=== PATIENT | female | born 1955 | race Hispanic/Latino ===

== ENCOUNTER 2018-05-08 10:31 | Inpatient (IN) | payer BC ==
[~2018-05-08] VITALS: Ht 152.4 cm; Wt 78.9 kg
[2018-05-08] MEDS ORDERED: ONDANSETRON HCL INJ 2 MG/ML VIAL IV STA ×2 (10:56→13:55)
[2018-05-08] MEDS ORDERED: PANTOPRAZOLE 40 MG 10ML VIAL IV STA (10:56)
[2018-05-08] MEDS ORDERED: SODIUM CHLORIDE 0.9% 1000ML 1,000 ML IV STA (10:56)
[2018-05-08] MEDS ORDERED: MORPHINE SULFATE INJ 4 MG/ML INJ IV STA (10:56)
[2018-05-08] MEDS ORDERED: DONNATAL/LIDOCAINE/MAALOX 30 ML SUSP PO ONE ×2 (11:00→13:00)
[2018-05-08 11:05] LABS: BASOPHILS % 0.1 % (0.0-1.0); HEMATOCRIT 40.2 % (34.2-44.1); HEMOGLOBIN 13.4 g/dL (12.0-16.0); LYMPHOCYTES # (AUTO) 0.9 (1.0-3.2); LYMPHOCYTES % 8.5 % (18.0-39.1); MEAN CORPUSCULAR HEMOGLOBIN 26.2 pg (28-32); MEAN CORPUSCULAR HGB CONC 33.3 g/dL (31-35); MEAN CORPUSCULAR VOLUME 78.7 fL (81-99); MONOCYTES # (AUTO) 0.4 (0.2-0.8); MONOCYTES % 3.6 % (4.4-11.3); NEUTROPHILS # (AUTO) 8.8 (2.1-6.9); NEUTROPHILS % 87.3 % (38.7-80.0); PLATELET COUNT 262 x10e3/uL (140-360); RED BLOOD COUNT 5.11 x10e6/uL (3.6-5.1); RED CELL DISTRIBUTION WIDTH 12.9 % (11.7-14.4)
[2018-05-08 11:07] LABS: BILIRUBIN,URINE NEGATIVE (NEGATIVE); CLARITY,URINE CLEAR (CLEAR); COLOR,URINE YELLOW (YELLOW); KETONES,URINE 1+ (NEGATIVE); LEUKOCYTE ESTERASE ,URINE NEGATIVE (NEGATIVE); NITRITE,URINE NEGATIVE (NEGATIVE); PROTEIN,URINE DIPSTICK TRACE (NEGATIVE); URINE UROBILINOGEN 0.2 mg/dL (0.2 - 1)
[2018-05-08 11:18] LABS: EPITHELIAL CELLS,URINE RARE /LPF; HYALINE CASTS 0-1 (0-1); MUCUS,URINE RARE (RARE)
[2018-05-08 11:19] LABS: INR 1.1; PROTHROMBIN TIME 13.4 seconds (11.9-14.5)
[2018-05-08 11:20] LABS: PARTIAL THROMBOPLASTIN TIME 29.7 seconds (23.8-35.5)
[2018-05-08 11:28] LABS: ALANINE AMINOTRANSFERASE 24 IU/L (0-55); ALBUMIN 4.5 g/dL (3.5-5.0); ALBUMIN/GLOBULIN RATIO 1.1 (0.8-2.0); ALKALINE PHOSPHATASE 78 IU/L (40-150); AMYLASE 39 U/L (25-125); ANION GAP 18.8 mmol/L (8-16); BLOOD UREA NITROGEN 15 mg/dL (7-26); BUN/CREATININE RATIO 21 (6-25); CALCIUM 10.5 mg/dL (8.4-10.2); CARBON DIOXIDE 23 mmol/L (22-29); CHLORIDE 98 mmol/L (98-107); CHOL/HDL RATIO 2.5 (3.0-3.6); CHOLESTEROL 90 MD/DL (0-199); CREATINE KINASE 115 IU/L (29-168); EST GLOMERULAR FILTRATION RATE > 60 ML/MIN (60-); GLUCOSE 237 mg/dL (74-118); HDL CHOLESTEROL 36 MG/DL (40-60); LDL CHOLESTEROL 37 MG/DL (60-130); LIPASE 17 U/L (8-78); POTASSIUM 3.8 mmol/L (3.5-5.1); SODIUM 136 mmol/L (136-145); TRIGLYCERIDES 83 MG/DL (0-149)
--- NOTE | 2018-05-08 12:50 | Diagnostic Imaging Report ---
PROCEDURE: CT ABDOMEN AND PELVIS WITH CONTRAST TECHNIQUE: The abdomen and pelvis were scanned utilizing a multidetector helical scanner from the diaphragm to the lesser trochanter after the IV administration of 100 cc of Isovue 370. Coronal and sagittal multiplanar reformations were obtained. RADIATION DOSE: DLP 652 mGy-cm COMPARISON: None. INDICATIONS: EPIGASTRIC PAIN FINDINGS: LOWER THORAX: Patchy dependent atelectasis. HEPATOBILIARY: There is a 9 mm hypodense lesion in the right hepatic lobe on series 2, image 23, too small to characterize. No other focal hepatic lesions. No biliary ductal dilatation. SPLEEN: No splenomegaly. PANCREAS: No focal masses or ductal dilatation. Punctate pancreatic tail hypodensity may represent side branch IPMN. ADRENALS: No adrenal nodules. KIDNEYS/URETERS: No hydronephrosis, stones, or solid mass lesions. PELVIC ORGANS/BLADDER: Unremarkable. PERITONEUM / RETROPERITONEUM: No free air or fluid. LYMPH NODES: No lymphadenopathy. VESSELS: Unremarkable. GI TRACT: There is a high-grade small bowel obstruction with dilated small bowel loops measuring up to 4.4 cm with fecalization of small bowel loops. There is a collapsed colon with small amount of stool contents in the rectum. Multiple transition points are noted, for example in the left lower quadrant on series 2, image 59 and right lower quadrant on series 2, image 62. There has been prior partial ileal and jejunal resection with reanastomosis. Small hiatal hernia. Normal appendix. BONES AND SOFT TISSUES: Scattered degenerative changes. No suspicious lytic or blastic lesions. Lower abdominal midline ventral hernia containing small bowel loops. IMPRESSION: High-grade small bowel structure with at least two transition points, likely related to adhesions given surgical history. Collapsed colon with a small amount of stool contents in the rectum. No free air. Dictated by: BRIANNE KIRKPATRICK M.D. on 05/08/2018 at 12:54 Electronically approved by: BRIANNE KIRKPATRICK M.D. on 05/08/2018 at 12:54
--- NOTE | 2018-05-08 12:52 | Diagnostic Imaging Report ---
PROCEDURE: A single AP view of the chest. COMPARISON: None. INDICATIONS: NAUSEA, VOMITING, ABDOMEN PAIN FINDINGS: Lines/tubes: None. Lungs: There are bilateral perihilar and interstitial opacities. Patchy opacities are present the lung bases, left greater than right. Pleura: There is no pleural effusion or pneumothorax. Heart and mediastinum: Mildly enlarged cardiomediastinal silhouette. Bones: No acute bony abnormality. IMPRESSION: Patchy consolidation, most pronounced in the left lower lobe may reflect aspiration, pneumonia, or atelectasis in the appropriate clinical setting. Mild pulmonary interstitial edema. Dictated by: BRIANNE KIRKPATRICK M.D. on 05/08/2018 at 12:57 Electronically approved by: BRIANNE KIRKPATRICK M.D. on 05/08/2018 at 12:57
[2018-05-08] MEDS ORDERED: MORPHINE SULFATE INJ 4 MG/ML INJ IV PRN (13:15)
[2018-05-08] MEDS ORDERED: BENZOCAINE/TETRACAINE/BUTAMBEN AERO SPRAY 56 GM CAN TOP ONE (13:30)
[2018-05-08] MEDS ORDERED: HYDROMORPHONE 1MG/1ML INJ IV STA (13:55)
[2018-05-08] MEDS: PIPER-TAZ 3.375 GM 50 ML IV SCH ×2 (14:13→18:00)
[2018-05-08] MEDS ORDERED: LISINOPRIL-HCT1 EAC2 PO (14:19)
[2018-05-08] MEDS ORDERED: GLIMEPIRIDE2 MG PO (14:19)
[2018-05-08] MEDS ORDERED: LEXAPRO10 MG PO (14:19)
[2018-05-08] MEDS ORDERED: DOCUSATE SODIU100 MG PO (14:19)
[2018-05-08] MEDS ORDERED: TIZANIDINE HCL4 MG PO (14:19)
[2018-05-08] MEDS ORDERED: OMEPRAZOLE40 MG PO (14:19)
[2018-05-08] MEDS ORDERED: LEVOTHYROXINE88 MCG PO (14:19)
[2018-05-08] MEDS ORDERED: ATORVASTATIN CA20 MG PO (14:19)
[2018-05-08] MEDS: MORPHINE SULFATE 2 MG/ML SYR IV PRN ×2 (14:51→22:00)
[2018-05-08] MEDS: SODIUM CHLORIDE 0.9% 250ML IRRIG IR SCH ×3 (14:51→22:00)
[2018-05-08] MEDS ORDERED: IOPAMIDOL 370 MG/ML 200 ML INFUS..BTL INJ ONE (15:01)
[2018-05-08] MEDS ORDERED: SODIUM CHLORIDE 0.9% 50ML 50 ML ONE (15:01)
[2018-05-08] MEDS: SODIUM CHLORIDE 0.9% 1000ML 1,000 ML IV SCH (15:40)
[2018-05-08 15:42] VITALS: BP 144/64
--- NOTE | 2018-05-08 17:03 | Diagnostic Imaging Report ---
PROCEDURE: A single AP view of the chest. COMPARISON: [facility], CT, CT ABDOMEN/PELVIS W, 05/08/2018, 12:07. INDICATIONS: NG TUBE PLACEMENT FINDINGS: See impression. IMPRESSION: 1. interval placement of enteric tube, which has its distal tip projecting in the region of the stomach body. 2. Mildly dilated single loop of likely small bowel in the left lower abdomen. Please refer to CT abdomen performed same day for further detail Gene Mosher M.D. Dictated by: Gene Mosher M.D. on 05/08/2018 at 17:08 Electronically approved by: Gene Mosher M.D. on 05/08/2018 at 17:08
[2018-05-08 17:13] VITALS: BP 144/64
--- NOTE | 2018-05-08 17:16 | Consultation ---
DATE OF CONSULTATION: May 08, 2018 CHIEF COMPLAINT: Abdominal pain. HISTORY OF PRESENT ILLNESS: The patient 63-year-old female with 1-day history of pain in the epigastric area and periumbilical with nausea and vomiting. The patient is in severe discomfort with pain described as sharp and comes in waves. No fever, chills or diarrhea. The patient gave a history of recurrent intestinal obstruction since last year, this being the 3rd episode in 10 months. Usually, the patient states it is resolved with nasogastric tube decompression. PAST MEDICAL HISTORY: Significant for hypothyroidism, hypertension, hyperlipidemia, and diabetes. PAST SURGICAL HISTORY: and hernia repair with bowel resection times 2. ALLERGIES: PENICILLIN. SOCIAL HABITS: No history of smoking or alcohol abuse. REVIEW OF SYSTEMS: No chest pain or shortness of breath. PHYSICAL EXAMINATION: VITAL SIGNS: Stable. The patient is afebrile. GENERAL: She is awake and in moderate to severe discomfort. HEENT: Sclerae nonicteric. NECK: Supple. LUNGS: Clear. HEART: Regular rate and rhythm. ABDOMEN: Distended with voluntary guarding diffusely with possible rebound tenderness. EXTREMITIES: Without cyanosis or edema. Patient's white cell count is 10, hemoglobin 13, creatinine 0.7. Lipase 17. CT of the abdomen showed small bowel obstruction to transitional point in the pelvis in the left lower quadrant with dilated proximal small bowel. ASSESSMENT: Recurrent intestinal obstruction at 2 point, at risk for blind loop syndrome. PLAN: Nasogastric tube has been inserted and placed on suction. Patient's family seems to be against any surgical intervention at the present time. Will follow patient with repeat exam and x-ray. Thank you for the consultation. Job#: [id number]
--- NOTE | 2018-05-08 18:37 | Diagnostic Imaging Report ---
PROCEDURE:ABDOMEN COMP INCL UPR OR DECUB INDICATION:Small bowel obstruction COMPARISON:[facility], DX, CHEST SINGLE (PORTABLE), 05/08/2018, 16:37. FINDINGS: Enteric tube has distal tip projecting in the region of the stomach body. Moderately dilated loop of bowel in the mid/left lower abdomen, with maximal measurement of approximately 4.3 cm. Contrast is noted in the collecting system and bladder Visualized lung bases are grossly clear. No abnormal calcifications overlie the renal shadows. CONCLUSION: 1. Enteric tube has distal tip projecting in the region of the stomach body. 2. Moderately dilated loop of bowel in the mid/left lower abdomen. Please refer to CT abdomen and pelvis performed same date for further detail. Gene Mosher M.D. Dictated by: Gene Mosher M.D. on 05/08/2018 at 18:41 Electronically approved by: Gene Mosher M.D. on 05/08/2018 at 18:41
[2018-05-08 20:00] VITALS: BP 107/54
[2018-05-08 22:00] VITALS: BP 107/54
[2018-05-08] MEDS: ONDANSETRON HCL INJ 2 MG/ML VIAL IV PRN (22:00)
[2018-05-09] VITALS (8 sets, daily range): BP systolic 95–138; BP diastolic 56–83
[2018-05-09] MEDS: PIPER-TAZ 3.375 GM 50 ML IV SCH ×4 (00:33→17:20)
[2018-05-09] MEDS: SODIUM CHLORIDE 0.9% 250ML IRRIG IR SCH ×6 (00:33→21:15)
[2018-05-09] MEDS: ONDANSETRON HCL INJ 2 MG/ML VIAL IV PRN ×2 (01:58→20:21)
[2018-05-09] MEDS: MORPHINE SULFATE 2 MG/ML SYR IV PRN ×3 (01:58→20:30)
[2018-05-09] MEDS: SODIUM CHLORIDE 0.9% 1000ML 1,000 ML IV SCH ×2 (04:52→16:03)
[2018-05-09] MEDS ORDERED: ACETAMINOPHEN 1000 MG/100 ML IV PRN (05:00)
[2018-05-09 05:54] LABS: BASOPHILS % 0.2 % (0.0-1.0); EOSINOPHILS # (AUTO) 0.1 (0.0-0.4); EOSINOPHILS % 1.1 % (0.0-6.0); HEMOGLOBIN 11.1 g/dL (12.0-16.0); LYMPHOCYTES # (AUTO) 1.3 (1.0-3.2); LYMPHOCYTES % 28.4 % (18.0-39.1); MEAN CORPUSCULAR HEMOGLOBIN 26.1 pg (28-32); MEAN CORPUSCULAR HGB CONC 32.6 g/dL (31-35); MEAN CORPUSCULAR VOLUME 79.8 fL (81-99); MONOCYTES # (AUTO) 0.6 (0.2-0.8); MONOCYTES % 13.3 % (4.4-11.3); NEUTROPHILS # (AUTO) 2.7 (2.1-6.9); NEUTROPHILS % 56.6 % (38.7-80.0); PLATELET COUNT 203 x10e3/uL (140-360); RED BLOOD COUNT 4.26 x10e6/uL (3.6-5.1); RED CELL DISTRIBUTION WIDTH 13.1 % (11.7-14.4)
[2018-05-09 06:14] LABS: ALANINE AMINOTRANSFERASE 16 IU/L (0-55); ALBUMIN 3.5 g/dL (3.5-5.0); ALKALINE PHOSPHATASE 60 IU/L (40-150); ANION GAP 12.5 mmol/L (8-16); BLOOD UREA NITROGEN 14 mg/dL (7-26); BUN/CREATININE RATIO 22 (6-25); CALCIUM 8.7 mg/dL (8.4-10.2); CARBON DIOXIDE 24 mmol/L (22-29); CHLORIDE 104 mmol/L (98-107); CREATININE, SERUM 0.65 mg/dL (0.57-1.11); EST GLOMERULAR FILTRATION RATE > 60 ML/MIN (60-); GLUCOSE 148 mg/dL (74-118); POTASSIUM 3.5 mmol/L (3.5-5.1); SODIUM 137 mmol/L (136-145)
[2018-05-10 00:07] VITALS: BP 155/75
[2018-05-10] MEDS: PIPER-TAZ 3.375 GM 50 ML IV SCH ×4 (00:45→17:03)
[2018-05-10] MEDS: ONDANSETRON HCL INJ 2 MG/ML VIAL IV PRN ×2 (01:10→19:04)
[2018-05-10] MEDS: MORPHINE SULFATE 2 MG/ML SYR IV PRN ×3 (01:10→22:30)
[2018-05-10] MEDS: SODIUM CHLORIDE 0.9% 250ML IRRIG IR SCH ×6 (01:10→21:15)
[2018-05-10 05:09] VITALS: BP 156/71
[2018-05-10] MEDS: SODIUM CHLORIDE 0.9% 1000ML 1,000 ML IV SCH ×3 (05:29→19:09)
[2018-05-10 07:18] LABS: BASOPHILS % 0.3 % (0.0-1.0); HEMATOCRIT 33.7 % (34.2-44.1); LYMPHOCYTES # (AUTO) 1.5 (1.0-3.2); LYMPHOCYTES % 37.4 % (18.0-39.1); MEAN CORPUSCULAR HEMOGLOBIN 26.4 pg (28-32); MEAN CORPUSCULAR HGB CONC 32.6 g/dL (31-35); MONOCYTES # (AUTO) 0.4 (0.2-0.8); MONOCYTES % 9.5 % (4.4-11.3); NEUTROPHILS % 51.5 % (38.7-80.0); PLATELET COUNT 186 x10e3/uL (140-360); RED BLOOD COUNT 4.16 x10e6/uL (3.6-5.1)
[2018-05-10 07:20] VITALS: BP 105/51
[2018-05-10 07:37] LABS: ALANINE AMINOTRANSFERASE 14 IU/L (0-55); ALBUMIN 3.4 g/dL (3.5-5.0); ALKALINE PHOSPHATASE 55 IU/L (40-150); BLOOD UREA NITROGEN 6 mg/dL (7-26); BUN/CREATININE RATIO 10 (6-25); CALCIUM 8.3 mg/dL (8.4-10.2); CARBON DIOXIDE 26 mmol/L (22-29); CHLORIDE 105 mmol/L (98-107); EST GLOMERULAR FILTRATION RATE > 60 ML/MIN (60-); GLUCOSE 119 mg/dL (74-118); SODIUM 141 mmol/L (136-145)
[2018-05-10 07:46] VITALS: BP 105/51
[2018-05-10] MEDS ORDERED: LEVOFLOXACIN 500MG/D5W 100ML 100 ML IV ONE (09:40)
[2018-05-10] MEDS ORDERED: BUPIVACAINE 0.5%/EPI 30 ML SDV INJ ONE (09:44)
[2018-05-10] MEDS ORDERED: BUPIVACAINE 0.25%/EPI 30ML SDV INJ ONE (09:44)
[2018-05-10] MEDS ORDERED: NEOSTIGMINE 5 MG/5ML SYR ONE (10:02)
[2018-05-10] MEDS ORDERED: ONDANSETRON HCL INJ 2 MG/ML VIAL ONE (10:02)
[2018-05-10] MEDS ORDERED: KETOROLAC TROMETHAMINE 30 MG/ML VIAL ONE (10:02)
[2018-05-10] MEDS ORDERED: PROPOFOL IV EMULSION 10 MG/ML 20 ML VIAL ONE (10:02)
[2018-05-10] MEDS ORDERED: DEXAMETHASONE SOD PHOS INJ 4 MG/ML VIAL ONE (10:02)
[2018-05-10] MEDS ORDERED: GLYCOPYRROLATE INJ 1MG/ 5 ML SYR ONE (10:02)
[2018-05-10] MEDS ORDERED: ACETAMINOPHEN 1000 MG/100 ML IV ONE (10:02)
[2018-05-10] MEDS ORDERED: SUCCINYLCHOLINE 200 MG/10 ML SYR ONE (10:02)
[2018-05-10] MEDS ORDERED: ROCURONIUM BROMIDE 10 MG/ML 5ML VIAL ONE (10:02)
[2018-05-10] MEDS ORDERED: HYDROMORPHONE 1MG/1ML INJ ONE ×2 (14:33→14:46)
[2018-05-10 15:57] VITALS: BP 136/67
[2018-05-10] MEDS ORDERED: PANTOPRAZOLE 40 MG 10ML VIAL IV ONE (17:03)
--- NOTE | 2018-05-10 18:27 | Operative Report ---
DATE OF PROCEDURE: May 10, 2018 PREOPERATIVE DIAGNOSIS: Small-bowel obstruction. POSTOPERATIVE DIAGNOSIS: Small-bowel obstruction. OPERATIVE PROCEDURES 1. Diagnostic laparoscopy. 2. Open lysis of adhesions. 3. Repair of enterotomy. ANESTHESIA: General. INDICATIONS FOR SURGERY: This patient is a 63-year-old female with chronic recurrent abdominal pain requiring hospitalizations 3 times in the last year. The patient has had multiple abdominal surgery. CT scan showed evidence of high-grade obstruction at 2 points in the small intestine. Due to persistent pain and evidence of bowel obstruction, the patient had consented for diagnostic laparoscopy and possible open bowel resection. PROCEDURE FINDINGS: High-grade small-bowel obstruction from adhesions of small bowel to the previously placed mesh. DESCRIPTION OF PROCEDURE: The patient was brought to the OR intubated. Abdomen prepped with alcohol and draped in a sterile fashion. A left upper quadrant subcostal port access was carried out, and insufflation then began. Under direct vision, other working ports are placed in the epigastric and right upper quadrant. Adhesions noted from prior surgery. This was then taken down the with sharp scissor dissection to minimize risk of bowel injury. The bowel was adherent to the abdominal wall mesh in the midabdomen, as well as the pelvis in the left lower quadrant. Lysis of adhesions was carried out gingerly with the scissors. At points, we had to separate the mesh from the abdominal wall instead of working directly on the bowel to minimize risks of iatrogenic injury. After an hour of lysis of adhesions, the adhesion in the pelvis was so dense that we made a midline incision from the umbilicus down towards the pelvis going through the midline fascia. Then under direct open access, we are able to lyse the adhesions from the pelvis completely freeing the bowel. A small iatrogenic to injury to the ileum occurred, which was repaired immediately with 3-0 Vicryl in 2 layers. Adhesions were then lysed completely from the ileocecal bowel in a retrograde fashion to a point above the mesh adhesions to ensure no distal obstruction to the enterotomy repair. No other points of obstruction noted. As we lysed all the adhesions encountered in the small intestine with Metzenbaum scissors. Operative field was then irrigated with copious saline solution. Hemostasis achieved. The omentum was then mobilized down to cover the bowel and the pelvic area to prevent recurrence of adhesions. The abdominal wall was then closed with a running 0 PDS reinforced with interrupted 0 Vicryl. Skin closed with ny. The patient was then extubated and transported to recovery room in guarded condition. Estimated blood loss 50 mL. Job#: [id number] GIANFRANCO
[2018-05-10 20:00] VITALS: BP 126/61
[2018-05-11] VITALS (8 sets, daily range): BP systolic 100–122; BP diastolic 53–62
[2018-05-11] MEDS: PIPER-TAZ 3.375 GM 50 ML IV SCH ×4 (00:05→18:00)
[2018-05-11] MEDS: SODIUM CHLORIDE 0.9% 250ML IRRIG IR SCH ×6 (01:15→21:16)
[2018-05-11] MEDS: ONDANSETRON HCL INJ 2 MG/ML VIAL IV PRN ×2 (04:35→21:19)
[2018-05-11] MEDS: MORPHINE SULFATE 2 MG/ML SYR IV PRN (04:36)
[2018-05-11] MEDS: SODIUM CHLORIDE 0.9% 1000ML 1,000 ML IV SCH ×3 (05:00→21:16)
[2018-05-11] MEDS: ACETAMINOPHEN 1000 MG/100 ML IV PRN ×2 (05:47→15:34)
[2018-05-11 08:10] LABS: HEMATOCRIT 29.3 % (34.2-44.1); HEMOGLOBIN 9.4 g/dL (12.0-16.0); LYMPHOCYTES # (AUTO) 1.1 (1.0-3.2); LYMPHOCYTES % 20.2 % (18.0-39.1); MEAN CORPUSCULAR HEMOGLOBIN 25.9 pg (28-32); MEAN CORPUSCULAR HGB CONC 32.1 g/dL (31-35); MEAN CORPUSCULAR VOLUME 80.7 fL (81-99); MONOCYTES # (AUTO) 0.6 (0.2-0.8); NEUTROPHILS # (AUTO) 3.7 (2.1-6.9); NEUTROPHILS % 68.2 % (38.7-80.0); PLATELET COUNT 181 x10e3/uL (140-360); RED BLOOD COUNT 3.63 x10e6/uL (3.6-5.1); RED CELL DISTRIBUTION WIDTH 12.9 % (11.7-14.4)
[2018-05-11 08:30] LABS: ANION GAP 10.8 mmol/L (8-16); BLOOD UREA NITROGEN 9 mg/dL (7-26); BUN/CREATININE RATIO 16 (6-25); CALCIUM 7.5 mg/dL (8.4-10.2); CARBON DIOXIDE 25 mmol/L (22-29); CHLORIDE 108 mmol/L (98-107); CREATININE, SERUM 0.57 mg/dL (0.57-1.11); EST GLOMERULAR FILTRATION RATE > 60 ML/MIN (60-); GLUCOSE 126 mg/dL (74-118); SODIUM 141 mmol/L (136-145)
[2018-05-11 08:35] LABS: POTASSIUM 2.8 mmol/L (3.5-5.1)
[2018-05-11] MEDS: PANTOPRAZOLE 40 MG 10ML VIAL IV SCH ×2 (09:11→16:50)
[2018-05-11] MEDS ORDERED: POTASSIUM CHLORIDE 20MEQ/100ML 200 ML IV ONE (09:15)
[2018-05-11] MEDS: HYDROMORPHONE 1MG/1ML INJ IV PRN ×2 (11:56→21:19)
[2018-05-11] MEDS: DIPHENHYDRAMINE HCL INJ 50 MG/ML VIAL IV PRN (13:15)
[2018-05-12] VITALS: BP 147/70
[2018-05-12] MEDS ORDERED: ACETAMINOPHEN 1000 MG/100 ML IV PRN
[2018-05-12] MEDS: DIPHENHYDRAMINE HCL INJ 50 MG/ML VIAL IV PRN ×2 (00:05→20:56)
[2018-05-12] MEDS: PIPER-TAZ 3.375 GM 50 ML IV SCH ×5 (00:08→23:37)
[2018-05-12] MEDS: SODIUM CHLORIDE 0.9% 1000ML 1,000 ML IV SCH ×4 (01:31→21:06)
[2018-05-12] MEDS: SODIUM CHLORIDE 0.9% 250ML IRRIG IR SCH ×6 (01:31→21:06)
[2018-05-12 04:00] VITALS: BP 125/61
[2018-05-12 05:29] LABS: BASOPHILS % 0.1 % (0.0-1.0); EOSINOPHILS # (AUTO) 0.1 (0.0-0.4); HEMATOCRIT 28.5 % (34.2-44.1); HEMOGLOBIN 9.3 g/dL (12.0-16.0); LYMPHOCYTES # (AUTO) 1.1 (1.0-3.2); MEAN CORPUSCULAR HEMOGLOBIN 25.9 pg (28-32); MEAN CORPUSCULAR HGB CONC 32.6 g/dL (31-35); MEAN CORPUSCULAR VOLUME 79.4 fL (81-99); MONOCYTES # (AUTO) 0.8 (0.2-0.8); MONOCYTES % 11.9 % (4.4-11.3); NEUTROPHILS # (AUTO) 4.6 (2.1-6.9); NEUTROPHILS % 69.4 % (38.7-80.0); PLATELET COUNT 180 x10e3/uL (140-360); RED BLOOD COUNT 3.59 x10e6/uL (3.6-5.1)
[2018-05-12 05:55] LABS: ALANINE AMINOTRANSFERASE 10 IU/L (0-55); ALBUMIN 2.6 g/dL (3.5-5.0); ALBUMIN/GLOBULIN RATIO 0.8 (0.8-2.0); ALKALINE PHOSPHATASE 40 IU/L (40-150); ANION GAP 11.1 mmol/L (8-16); BLOOD UREA NITROGEN 6 mg/dL (7-26); BUN/CREATININE RATIO 11 (6-25); CALCIUM 7.7 mg/dL (8.4-10.2); CARBON DIOXIDE 23 mmol/L (22-29); CHLORIDE 109 mmol/L (98-107); CREATININE, SERUM 0.53 mg/dL (0.57-1.11); EST GLOMERULAR FILTRATION RATE > 60 ML/MIN (60-); GLUCOSE 108 mg/dL (74-118); POTASSIUM 3.1 mmol/L (3.5-5.1); SODIUM 140 mmol/L (136-145)
[2018-05-12] MEDS: HYDROMORPHONE 1MG/1ML INJ IV PRN ×3 (06:22→22:41)
[2018-05-12] MEDS: ONDANSETRON HCL INJ 2 MG/ML VIAL IV PRN ×3 (06:22→22:41)
[2018-05-12] MEDS: PANTOPRAZOLE 40 MG 10ML VIAL IV SCH ×2 (08:05→17:19)
[2018-05-12] MEDS ORDERED: FENTANYL CITRATE/PF 100MCG/2 ML INJ ONE (09:53)
[2018-05-12 10:23] VITALS: BP 121/56
[2018-05-12 12:19] VITALS: BP 128/63
--- NOTE | 2018-05-12 16:48 | Diagnostic Imaging Report ---
PROCEDURE:X-RAY ABDOMEN - KUB COMPARISON:Abdominal x-ray dated 05/08/18 INDICATIONS:SMALL BOWEL OBSTRUCTION FINDINGS: Limited by body habitus. Unchanged enteric tube with tip overlying gastric body. Moderate gas-distention of bowel loops throughout the abdomen. Large rectal stool burden. Skin ny overlying lower abdomen and pelvis. There are also midline upper and left abdominal skin ny. CONCLUSION: Moderate gas-distention of bowel loops throughout the abdomen, suggestive of postsurgical ileus. Continue followup as clinically indicated. Dictated by: Mamadou Glover M.D. on 05/12/2018 at 16:52 Electronically approved by: Mamadou Glover M.D. on 05/12/2018 at 16:52
[2018-05-12 17:11] VITALS: BP 129/57
[2018-05-12 20:00] VITALS: BP 123/58
[2018-05-13] VITALS (8 sets, daily range): BP systolic 116–137; BP diastolic 57–81
[2018-05-13] MEDS: SODIUM CHLORIDE 0.9% 250ML IRRIG IR SCH ×4 (02:14→13:15)
[2018-05-13] MEDS: SODIUM CHLORIDE 0.9% 1000ML 1,000 ML IV SCH ×3 (05:21→14:05)
[2018-05-13] MEDS: PIPER-TAZ 3.375 GM 50 ML IV SCH ×4 (05:32→23:21)
[2018-05-13] MEDS: ONDANSETRON HCL INJ 2 MG/ML VIAL IV PRN (07:00)
[2018-05-13] MEDS: HYDROMORPHONE 1MG/1ML INJ IV PRN ×3 (07:00→22:15)
[2018-05-13] MEDS: PANTOPRAZOLE 40 MG 10ML VIAL IV SCH ×2 (08:56→16:45)
[2018-05-13] MEDS: DOCUSATE SODIUM 100 MG CAP PO SCH (16:45)
[2018-05-14] VITALS (7 sets, daily range): BP systolic 109–135; BP diastolic 58–75
[2018-05-14] MEDS: SODIUM CHLORIDE 0.9% 1000ML 1,000 ML IV SCH ×2 (00:31→07:11)
[2018-05-14] MEDS: HYDROMORPHONE 1MG/1ML INJ IV PRN ×2 (05:40→17:21)
[2018-05-14] MEDS: PIPER-TAZ 3.375 GM 50 ML IV SCH ×4 (05:47→23:50)
[2018-05-14 05:58] LABS: BASOPHILS % 0.2 % (0.0-1.0); EOSINOPHILS # (AUTO) 0.2 (0.0-0.4); EOSINOPHILS % 3.5 % (0.0-6.0); HEMATOCRIT 26.9 % (34.2-44.1); HEMOGLOBIN 8.9 g/dL (12.0-16.0); LYMPHOCYTES # (AUTO) 1.1 (1.0-3.2); MEAN CORPUSCULAR HGB CONC 33.1 g/dL (31-35); MEAN CORPUSCULAR VOLUME 78.7 fL (81-99); MONOCYTES # (AUTO) 0.5 (0.2-0.8); MONOCYTES % 8.2 % (4.4-11.3); NEUTROPHILS # (AUTO) 3.9 (2.1-6.9); NEUTROPHILS % 68.6 % (38.7-80.0); PLATELET COUNT 231 x10e3/uL (140-360); RED BLOOD COUNT 3.42 x10e6/uL (3.6-5.1); RED CELL DISTRIBUTION WIDTH 13.2 % (11.7-14.4)
[2018-05-14 06:19] LABS: ALANINE AMINOTRANSFERASE 15 IU/L (0-55); ALBUMIN 2.4 g/dL (3.5-5.0); ALBUMIN/GLOBULIN RATIO 0.7 (0.8-2.0); ALKALINE PHOSPHATASE 40 IU/L (40-150); ANION GAP 12.2 mmol/L (8-16); BLOOD UREA NITROGEN < 5 mg/dL (7-26); CARBON DIOXIDE 21 mmol/L (22-29); CHLORIDE 109 mmol/L (98-107); CREATININE, SERUM 0.46 mg/dL (0.57-1.11); EST GLOMERULAR FILTRATION RATE > 60 ML/MIN (60-); GLUCOSE 102 mg/dL (74-118); POTASSIUM 3.2 mmol/L (3.5-5.1); SODIUM 139 mmol/L (136-145)
[2018-05-14 06:20] LABS: BUN/CREATININE RATIO 11 (6-25)
[2018-05-14] MEDS: PANTOPRAZOLE 40 MG 10ML VIAL IV SCH ×2 (09:21→16:54)
[2018-05-14] MEDS ORDERED: POTASSIUM CHLORIDE 20 MEQ TAB CR PO STA (09:21)
[2018-05-14] MEDS: DOCUSATE SODIUM 100 MG CAP PO SCH ×2 (09:21→16:55)
[2018-05-14] MEDS: ACETAMINOPHEN 325 MG TAB PO PRN (17:13)
[2018-05-15] VITALS: BP 115/64
[2018-05-15] MEDS: DIPHENHYDRAMINE HCL INJ 50 MG/ML VIAL IV PRN (04:45)
[2018-05-15] MEDS: PIPER-TAZ 3.375 GM 50 ML IV SCH ×2 (05:21→12:41)
[2018-05-15 05:32] VITALS: BP 138/65
[2018-05-15 06:10] LABS: ANION GAP 12.3 mmol/L (8-16); BLOOD UREA NITROGEN < 5 mg/dL (7-26); CALCIUM 8.5 mg/dL (8.4-10.2); CARBON DIOXIDE 26 mmol/L (22-29); CHLORIDE 108 mmol/L (98-107); CREATININE, SERUM 0.51 mg/dL (0.57-1.11); EST GLOMERULAR FILTRATION RATE > 60 ML/MIN (60-); GLUCOSE 122 mg/dL (74-118); POTASSIUM 3.3 mmol/L (3.5-5.1); SODIUM 143 mmol/L (136-145)
[2018-05-15 06:11] LABS: BUN/CREATININE RATIO 10 (6-25)
[2018-05-15 08:42] VITALS: BP 142/65
[2018-05-15 08:45] VITALS: BP 142/65
[2018-05-15] MEDS: PANTOPRAZOLE 40 MG 10ML VIAL IV SCH ×2 (08:45→17:19)
[2018-05-15] MEDS: DOCUSATE SODIUM 100 MG CAP PO SCH ×2 (08:46→17:00)
[2018-05-15] MEDS ORDERED: POTASSIUM CHLORIDE 20 MEQ TAB CR PO STA (08:47)
[2018-05-15 13:07] VITALS: BP 115/55
[2018-05-15] MEDS ORDERED: DIATRIZOATE MEGL/DIATRIZOA SOD 30 ML BTL PO ONE (17:03)
[2018-05-15 20:00] VITALS: BP 143/66
--- NOTE | 2018-05-15 20:04 | Diagnostic Imaging Report ---
EXAM: CT Abdomen and Pelvis WITH contrast INDICATION: \S\abdominal distention post op \[id number] \S\1927 COMPARISON: None. TECHNIQUE: Abdomen and pelvis were scanned utilizing a multidetector helical scanner from the lung base to the pubic symphysis after administration of IV contrast. Coronal and sagittal reformations were obtained. Routine protocol was performed. Scan was performed when during portal venous phase. IV CONTRAST: 100 mL of Isovue-370 ORAL CONTRAST: Gastroview COMPLICATIONS: None RADIATION DOSE: Total DLP: 584.8 mGy*cm Estimated effective dose: (DLP x 0.015 x size factor) mSv CTDIvol has been reviewed. It is below the limits set by the Radiation Protocol Committee (RPC). FINDINGS: LINES and TUBES: None. LOWER THORAX: Trace left pleural effusion. Mild bibasilar atelectasis. HEPATOBILIARY: Right hepatic 1.1 cm cyst. Left hepatic 0.4 cm hypodensity, too small to characterize but probably a cyst. No biliary ductal dilation. GALLBLADDER: No radio-opaque stones or sludge. No wall thickening. SPLEEN: No splenomegaly. PANCREAS: No focal masses or ductal dilatation. Fat attenuating 0.7 cm area in the pancreatic tail may represent interdigitating fat or lipoma. ADRENALS: No adrenal nodules KIDNEYS/URETERS: Kidneys enhance symmetrically. No hydronephrosis. No cystic or solid mass lesions. No stones. GI TRACT: Mild small bowel wall thickening, likely postoperative related changes. Small bowel sutures in the left upper quadrant with good opacification of the anastomosis, without evidence of leak. No abnormal distention, additional wall thickening, or evidence of bowel obstruction. Enteric contrast is present within the colon to the level of the proximal descending colon. Appendix is normal. PELVIC ORGANS/BLADDER: Hysterectomy. Small focus of air within the bladder. Recommend correlation with instrumentation. LYMPH NODES: No lymphadenopathy. VESSELS: There is mild atherosclerotic disease in the aorta and major arterial branches. PERITONEUM / RETROPERITONEUM: Small amount of air, likely postoperative. Scattered small amount of free fluid. BONES: There are degenerative changes in the lumbar spine. Grade 1 anterolisthesis of L4 on L5 without spondylolysis. SOFT TISSUES: Midline laparotomy incision with overlying skin ny without evidence of dehiscence. Anasarca. IMPRESSION: 1. No evidence of small bowel obstruction. 2. Expected post-operative findings related to partial small bowel resection. Signed by: DR. Andrea De La Fuente MD on 05/15/2018 8:01 PM
[2018-05-16] VITALS (7 sets, daily range): BP systolic 118–155; BP diastolic 64–87
[2018-05-16] MEDS ORDERED: SODIUM CHLORIDE 0.9% 50ML 50 ML ONE (00:36)
[2018-05-16] MEDS ORDERED: IOPAMIDOL 370 MG/ML 200 ML INFUS..BTL INJ ONE (00:37)
[2018-05-16] MEDS: DIPHENHYDRAMINE HCL INJ 50 MG/ML VIAL IV PRN (02:16)
[2018-05-16] MEDS: BENZONATATE 100 MG CAP PO PRN ×2 (07:22→18:50)
[2018-05-16] MEDS: PANTOPRAZOLE 40 MG 10ML VIAL IV SCH ×2 (10:01→17:03)
[2018-05-16] MEDS: DOCUSATE SODIUM 100 MG CAP PO SCH ×2 (10:01→16:45)
[2018-05-17] VITALS (8 sets, daily range): BP systolic 92–172; BP diastolic 57–79
[2018-05-17] MEDS: ACETAMINOPHEN 325 MG TAB PO PRN ×3 (00:14→21:24)
[2018-05-17 07:21] LABS: BASOPHILS % 0.5 % (0.0-1.0); EOSINOPHILS # (AUTO) 0.2 (0.0-0.4); EOSINOPHILS % 3.8 % (0.0-6.0); HEMATOCRIT 32.9 % (34.2-44.1); HEMOGLOBIN 10.8 g/dL (12.0-16.0); LYMPHOCYTES # (AUTO) 1.7 (1.0-3.2); LYMPHOCYTES % 27.9 % (18.0-39.1); MEAN CORPUSCULAR HEMOGLOBIN 25.8 pg (28-32); MEAN CORPUSCULAR HGB CONC 32.8 g/dL (31-35); MEAN CORPUSCULAR VOLUME 78.7 fL (81-99); MONOCYTES # (AUTO) 0.5 (0.2-0.8); MONOCYTES % 8.5 % (4.4-11.3); NEUTROPHILS # (AUTO) 3.5 (2.1-6.9); NEUTROPHILS % 58.5 % (38.7-80.0); PLATELET COUNT 411 x10e3/uL (140-360); RED BLOOD COUNT 4.18 x10e6/uL (3.6-5.1); RED CELL DISTRIBUTION WIDTH 13.3 % (11.7-14.4)
[2018-05-17 07:41] LABS: ALANINE AMINOTRANSFERASE 22 IU/L (0-55); ALBUMIN 3.1 g/dL (3.5-5.0); ALBUMIN/GLOBULIN RATIO 0.7 (0.8-2.0); ALKALINE PHOSPHATASE 56 IU/L (40-150); ANION GAP 15.5 mmol/L (8-16); BLOOD UREA NITROGEN < 5 mg/dL (7-26); CALCIUM 9.5 mg/dL (8.4-10.2); CARBON DIOXIDE 28 mmol/L (22-29); CHLORIDE 103 mmol/L (98-107); CREATININE, SERUM 0.56 mg/dL (0.57-1.11); EST GLOMERULAR FILTRATION RATE > 60 ML/MIN (60-); GLUCOSE 129 mg/dL (74-118); POTASSIUM 3.5 mmol/L (3.5-5.1); SODIUM 143 mmol/L (136-145)
[2018-05-17 07:46] LABS: BUN/CREATININE RATIO 9 (6-25)
[2018-05-17 07:47] LABS: ANISOCYTOSIS SLIGHT; BAND NEUTROPHILS % (MANUAL) 1 %; EOSINOPHILS % (MANUAL) 2 % (0-7); LYMPHOCYTES % (MANUAL) 29 % (19-48); MICROCYTOSIS S; MONOCYTES % (MANUAL) 8 % (3.4-9.0); NEUTROPHILS % (MANUAL) 58 % (40-74); PLATELET ESTIMATE ADEQUATE; PLATELET MORPHOLOGY COMMENT NORMAL; RBC MORPHOLOGY COMMENT NORMAL
[2018-05-17] MEDS: DOCUSATE SODIUM 100 MG CAP PO SCH ×2 (09:41→21:24)
[2018-05-17] MEDS: PANTOPRAZOLE 40 MG 10ML VIAL IV SCH ×2 (09:41→21:24)
[2018-05-18 00:25] VITALS: BP 119/63
[2018-05-18 04:00] VITALS: BP 127/72
[2018-05-18 08:27] VITALS: BP 113/67
[2018-05-18] MEDS: DOCUSATE SODIUM 100 MG CAP PO SCH (08:41)
[2018-05-18] MEDS: PANTOPRAZOLE 40 MG 10ML VIAL IV SCH (08:41)
== END 2018-05-18 09:13 | disposition home or self-care (01) | DRG 329 ==
LOC: ER 10:31 → ERHOLD 13:42 → MED/SURG 14:28
PROVIDERS: ADMIT Internal Medicine; ATTEND Internal Medicine
PROC: 0DQ80ZZ Repair Small Intestine, Open Approach (ICD-10-PCS; 2018-05-10)
PROC: 0DNH0ZZ Release Cecum, Open Approach (ICD-10-PCS; 2018-05-10)
PROC: 0DN84ZZ Release Small Intestine, Percutaneous Endoscopic Approach (ICD-10-PCS; 2018-05-10)
PROC: 0DNB0ZZ Release Ileum, Open Approach (ICD-10-PCS; principal; 2018-05-10 09:00)
DX: K56.52 Intestinal adhesions [bands] with complete obstruction (principal); N17.0 Acute kidney failure with tubular necrosis; E78.5 Hyperlipidemia, unspecified; E03.9 Hypothyroidism, unspecified; I10 Essential (primary) hypertension; E11.9 Type 2 diabetes mellitus without complications; K21.9 Gastro-esophageal reflux disease without esophagitis; K56.7 Ileus, unspecified; E87.6 Hypokalemia; D64.9 Anemia, unspecified; R50.82 Postprocedural fever; Z79.84 Long term (current) use of oral hypoglycemic drugs; Z88.0 Allergy status to penicillin; Z53.31 Laparoscopic surgical procedure converted to open procedure; F41.9 Anxiety disorder, unspecified
CPT/HCPCS: 36415; 71045; 74018; 74177; 80048; 80053; 80061; 81001; 82150; 82550; 82553; 82948; 83690; 83735; 84484; 85025; 85610; 85730; 87086; 87493; 93005; 99285; J1100; J1170; J1200; J1885; J1956; J2270; J2405; J2543; J3480; J7030; Q9967

== ENCOUNTER 2019-01-22 14:57 | Emergency (ER) | payer BC ==
[~2019-01-22] VITALS: Ht 154.9 cm; Wt 78.9 kg
[~2019-01-22 14:57] MED LIST: ATORVASTATIN CA20 MG PO; DOCUSATE SODIU100 MG PO; GLIMEPIRIDE2 MG PO; LEVOTHYROXINE88 MCG PO; LEXAPRO10 MG PO; LISINOPRIL-HCT1 EAC2 PO; OMEPRAZOLE40 MG PO; TIZANIDINE HCL4 MG PO
--- OUTSIDE RECORDS SUMMARY | 2019-01-22 14:59 | XMS REPORT ---
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 Active Problem Patient unable to exercise Z78.9 Active Problem Hypercholesteremia E78.00 Active Problem JESSICA (dyspnea on exertion) R06.09 Active Problem Essential hypertension I10 Active Problem Hypertensive left ventricular hypertrophy, without heart failure I11.9 Active Problem Nonrheumatic tricuspid (valve) insufficiency I36.1 Active Problem Status post ablation of incompetent vein using laser Z98.890 Active Problem Edema extremities R60.0 Active Problem Type 2 diabetes mellitus without complication, without long-term current use of insulin E11.9 Active Problem Non-rheumatic mitral regurgitation I34.0 Active Problem Anginal equivalent I20.8 Active Medications No Known Medications Results No Known Results Summary Purpose [employer] Submission
--- OUTSIDE RECORDS SUMMARY | 2019-01-22 14:59 | XMS REPORT | Continuity of Care Document ---
Author Author [facility] Address Unknown Phone Unavailable Problems Problem Status Onset Date Classification Date Reported Comments Source Varicose veins of bilateral lower extremities with other complications Active Problem 12/13/2018 Amelia Gancassandrayaakov Patient unable to exercise Active Problem 12/13/2018 Amelia Holley Frank Hypercholesteremia Active Problem 12/13/2018 Mohcasey Holley Samantayaakov JESSICA Active Problem 12/13/2018 Amelia Holley Frank Essential hypertension Active Problem 12/13/2018 Amelia Holley Frank Hypertensive left ventricular hypertrophy, without heart failure Active Problem 12/13/2018 Amelia Holley Frank Nonrheumatic tricuspid insufficiency Active Problem 12/13/2018 Amelia Leydi Malikdaniel Status post ablation of incompetent vein using laser Active Problem 12/13/2018 Amelia Gandaniel Edema extremities Active Problem 12/13/2018 Amelia Holley Frank Type 2 diabetes mellitus without complication, without long-term current use of insulin Active Problem 12/13/2018 Amelia Leydi Marie Non-rheumatic mitral regurgitation Active Problem 12/13/2018 Amelia Holley Frank Anginal equivalent Active Problem 12/13/2018 Amelia Gancassandrayaakov Medications Medication Details Route Status Patient Instructions Ordering Provider Order Date Source Allergies, Adverse Reactions, Alerts Substance Category Reaction Severity Reaction type Status Date Reported Comments Source Immunizations Immunization Date Given Site Status Last Updated Comments Source Results Order Name Results Value Reference Range Date Interpretation Comments Source Vital Signs Vital Sign Value Date Comments Source Encounters Location Location Details Encounter Type Encounter Number Reason For Visit Attending Provider ADM Date DC Date Status Source Procedures Procedure Code Date Perfomer Comments Source
[2019-01-22] MEDS ORDERED: TRAMADOL HCL 50 MG TAB PO NR (15:45)
[2019-01-22] MEDS ORDERED: GABAPENTIN300 MG PO (17:03)
--- NOTE | 2019-01-22 17:44 | NUR ---
PATIENT TO ROOM TO ROOM 10
== END 2019-01-22 18:01 | disposition home or self-care (01) ==
LOC: ER 14:57
DX: M79.662 Pain in left lower leg (principal); Z88.0 Allergy status to penicillin
CPT/HCPCS: 93926; 93971; 99283

== ENCOUNTER 2021-02-03 01:14 | Emergency (ER) | payer BC, OTHER ==
[~2021-02-03] VITALS: Ht 154.9 cm; Wt 78.9 kg
[~2021-02-03 01:14] MED LIST changes: +GABAPENTIN300 MG PO
[2021-02-03] MEDS ORDERED: MORPHINE SULFATE INJ 2 MG/ML SYR IV STA (01:39)
[2021-02-03] MEDS ORDERED: ONDANSETRON HCL INJ 2MG/ML 2ML 2 MG/ML VIAL IV STA (01:39)
[2021-02-03] MEDS ORDERED: PANTOPRAZOLE 40 MG 10ML VIAL IV STA (01:39)
[2021-02-03 01:55] LABS: BASOPHILS % 0.4 % (0.0-1.0); EOSINOPHILS # (AUTO) 0.1 (0.0-0.4); EOSINOPHILS % 1.2 % (0.0-6.0); HEMOGLOBIN 13.6 g/dL (12.0-16.0); LYMPHOCYTES # (AUTO) 2.7 (1.0-3.2); MEAN CORPUSCULAR HEMOGLOBIN 25.4 pg (28-32); MEAN CORPUSCULAR HGB CONC 33.2 g/dL (31-35); MEAN CORPUSCULAR VOLUME 76.6 fL (81-99); MONOCYTES # (AUTO) 0.8 (0.2-0.8); NEUTROPHILS # (AUTO) 3.7 (2.1-6.9); PLATELET COUNT 265 x10e3/uL (140-360); RED BLOOD COUNT 5.35 x10e6/uL (3.6-5.1)
[2021-02-03 02:07] LABS: AMYLASE 30 U/L (25-125); LIPASE 21 U/L (8-78)
[2021-02-03 02:16] LABS: ALANINE AMINOTRANSFERASE 35 IU/L (0-55); ALBUMIN 4.4 g/dL (3.5-5.0); ALKALINE PHOSPHATASE 105 IU/L (40-150); ANION GAP 21.3 mmol/L (8-16); BLOOD UREA NITROGEN 14 mg/dL (7-26); BUN/CREATININE RATIO 19 (6-25); CALCIUM 9.6 mg/dL (8.4-10.2); CARBON DIOXIDE 22 mmol/L (22-29); CHLORIDE 92 mmol/L (98-107); CREATINE KINASE 98 IU/L (29-168); CREATININE, SERUM 0.73 mg/dL (0.57-1.11); EST GLOMERULAR FILTRATION RATE > 60 ML/MIN (60-); GLUCOSE 180 mg/dL (74-118); POTASSIUM 3.3 mmol/L (3.5-5.1); SODIUM 132 mmol/L (136-145)
[2021-02-03 02:17] LABS: CLARITY,URINE CLEAR (CLEAR); COLOR,URINE YELLOW (YELLOW); KETONES,URINE NEGATIVE (NEGATIVE); LEUKOCYTE ESTERASE ,URINE NEGATIVE (NEGATIVE); NITRITE,URINE NEGATIVE (NEGATIVE); PROTEIN,URINE DIPSTICK NEGATIVE (NEGATIVE); RBC,URINE 0-5 /HPF (0-5); URINE UROBILINOGEN 0.2 mg/dL (0.2 - 1); WBC,URINE (MAN) 0-5 /HPF (0-5)
[2021-02-03 02:18] LABS: BACTERIA,URINE FEW /HPF; EPITHELIAL CELLS,URINE FEW /LPF
[2021-02-03] MEDS ORDERED: SODIUM CHLORIDE 0.9% 50ML 50 ML ONE (03:57)
[2021-02-03] MEDS ORDERED: IOPAMIDOL 370 MG/ML 200 ML INFUS..BTL INJ ONE (03:57)
[2021-02-03 04:00] VITALS: BP 114/67
== END 2021-02-03 04:14 | disposition home or self-care (01) ==
LOC: ER 01:51
DX: R10.84 Generalized abdominal pain (principal); R11.0 Nausea; K43.9 Ventral hernia without obstruction or gangrene; R94.31 Abnormal electrocardiogram [ECG] [EKG]; I10 Essential (primary) hypertension; E11.65 Type 2 diabetes mellitus with hyperglycemia; E78.5 Hyperlipidemia, unspecified; K21.9 Gastro-esophageal reflux disease without esophagitis; E03.9 Hypothyroidism, unspecified; Z85.42 Personal history of malignant neoplasm of other parts of uterus
CPT/HCPCS: 36415; 74177; 80053; 81001; 82150; 82550; 82553; 83690; 84484; 85025; 93005; 99284; C9113; J2270; J2405; Q9967

== ENCOUNTER 2021-10-24 15:38 | Emergency (ER) | payer OTHER ==
[~2021-10-24] VITALS: Ht 154.9 cm; Wt 78.9 kg
== END 2021-10-24 16:36 | disposition home or self-care (01) ==
LOC: ER 15:48
DX: U07.1 COVID-19 (principal); I10 Essential (primary) hypertension; E11.9 Type 2 diabetes mellitus without complications; E03.9 Hypothyroidism, unspecified; E78.5 Hyperlipidemia, unspecified; Z88.0 Allergy status to penicillin; Z79.84 Long term (current) use of oral hypoglycemic drugs; Z79.899 Other long term (current) drug therapy
CPT/HCPCS: 99282

== ENCOUNTER 2022-02-27 13:07 | Inpatient (IN) | payer MEDICARE, OTHER ==
[~2022-02-27] VITALS: Ht 152.4 cm; Wt 75.7 kg
[2022-02-27] MEDS ORDERED: FAMOTIDINE 20 MG/2 ML VIAL IV STA (13:14)
[2022-02-27] MEDS ORDERED: ONDANSETRON HCL INJ 2MG/ML 2ML 2 MG/ML VIAL IV STA (13:14)
[2022-02-27] MEDS ORDERED: DONNATAL/LIDOCAINE/MAALOX 30 ML SUSP PO ONE (13:15)
[2022-02-27] MEDS ORDERED: CELEXA10 MG PO (13:21)
[2022-02-27 13:48] LABS: BASOPHILS % 0.3 % (0.0-1.0); EOSINOPHILS % 0.8 % (0.0-6.0); HEMATOCRIT 38.1 % (34.2-44.1); HEMOGLOBIN 12.1 g/dL (12.0-16.0); LYMPHOCYTES # (AUTO) 1.3 (1.0-3.2); LYMPHOCYTES % 33.3 % (18.0-39.1); MEAN CORPUSCULAR HEMOGLOBIN 25.6 pg (28-32); MEAN CORPUSCULAR HGB CONC 31.8 g/dL (31-35); MEAN CORPUSCULAR VOLUME 80.7 fL (81-99); MONOCYTES # (AUTO) 0.5 (0.2-0.8); MONOCYTES % 12.1 % (4.4-11.3); NEUTROPHILS # (AUTO) 2.1 (2.1-6.9); NEUTROPHILS % 53.2 % (38.7-80.0); PLATELET COUNT 231 x10e3/uL (140-360); RED BLOOD COUNT 4.72 x10e6/uL (3.6-5.1); RED CELL DISTRIBUTION WIDTH 13.9 % (11.7-14.4)
[2022-02-27 14:07] LABS: ALBUMIN 3.7 g/dL (3.5-5.0); ALBUMIN/GLOBULIN RATIO 0.8 (0.8-2.0); ANION GAP 14.8 mmol/L (8-16); CALCIUM 9.3 mg/dL (8.4-10.2); CREATININE, SERUM 0.66 mg/dL (0.57-1.11); POTASSIUM 3.8 mmol/L (3.5-5.1)
[2022-02-27 15:36] LABS: CLARITY,URINE CLEAR (CLEAR); COLOR,URINE YELLOW (YELLOW); KETONES,URINE NEGATIVE (NEGATIVE); LEUKOCYTE ESTERASE ,URINE NEGATIVE (NEGATIVE); NITRITE,URINE NEGATIVE (NEGATIVE); PROTEIN,URINE DIPSTICK NEGATIVE (NEGATIVE); URINE UROBILINOGEN 0.2 mg/dL (0.2 - 1)
[2022-02-27 15:45] LABS: BACTERIA,URINE RARE /HPF; EPITHELIAL CELLS,URINE RARE /LPF
[2022-02-27] MEDS ORDERED: IOPAMIDOL 370 MG/ML 100 ML INFUS..BTL INJ ONE (16:56)
[2022-02-27] MEDS ORDERED: DEXTROSE 50% SYRINGE 50 ML IV PRN (18:15)
[2022-02-27 20:00] VITALS: BP 126/64
[2022-02-27 20:35] VITALS: BP 126/64
[2022-02-27 20:43] VITALS: BP 126/64
[2022-02-27] MEDS: INSULIN REGULAR, HUMAN 100 UNIT/1 ML SQ SCH (21:00)
[2022-02-27] MEDS: SODIUM CHLORIDE 0.9% 1000ML 1,000 ML IV SCH (21:21)
[2022-02-27 21:28] VITALS: BP 126/64
[2022-02-27] MEDS: Morphine 4mg Syringe 4 MG/ML INJ IV PRN (22:22)
[2022-02-27] MEDS: ONDANSETRON HCL INJ 2MG/ML 2ML 2 MG/ML VIAL IV PRN (22:23)
[2022-02-28] VITALS (8 sets, daily range): BP systolic 106–133; BP diastolic 56–74
[2022-02-28] MEDS: SODIUM CHLORIDE 0.9% 1000ML 1,000 ML IV SCH ×3 (01:51→15:47)
[2022-02-28] MEDS: ONDANSETRON HCL INJ 2MG/ML 2ML 2 MG/ML VIAL IV PRN ×4 (05:33→20:38)
[2022-02-28] MEDS: Morphine 4mg Syringe 4 MG/ML INJ IV PRN ×3 (05:33→18:38)
[2022-02-28 05:42] LABS: BASOPHILS % 0.3 % (0.0-1.0); EOSINOPHILS # (AUTO) 0.1 (0.0-0.4); EOSINOPHILS % 1.4 % (0.0-6.0); HEMATOCRIT 36.1 % (34.2-44.1); HEMOGLOBIN 11.5 g/dL (12.0-16.0); LYMPHOCYTES # (AUTO) 1.5 (1.0-3.2); LYMPHOCYTES % 42.1 % (18.0-39.1); MEAN CORPUSCULAR HEMOGLOBIN 25.8 pg (28-32); MEAN CORPUSCULAR HGB CONC 31.9 g/dL (31-35); MEAN CORPUSCULAR VOLUME 81.1 fL (81-99); MONOCYTES # (AUTO) 0.5 (0.2-0.8); MONOCYTES % 12.8 % (4.4-11.3); NEUTROPHILS # (AUTO) 1.6 (2.1-6.9); NEUTROPHILS % 43.1 % (38.7-80.0); PLATELET COUNT 222 x10e3/uL (140-360); RED BLOOD COUNT 4.45 x10e6/uL (3.6-5.1); RED CELL DISTRIBUTION WIDTH 13.8 % (11.7-14.4)
[2022-02-28 06:03] LABS: ALBUMIN 3.3 g/dL (3.5-5.0); ALBUMIN/GLOBULIN RATIO 0.8 (0.8-2.0); ANION GAP 11.6 mmol/L (8-16); CREATININE, SERUM 0.59 mg/dL (0.57-1.11); POTASSIUM 3.6 mmol/L (3.5-5.1)
[2022-02-28] MEDS: INSULIN REGULAR, HUMAN 100 UNIT/1 ML SQ SCH ×4 (07:30→22:30)
[2022-02-28] MEDS ORDERED: TIZANIDINE HCL 4 MG TAB PO PRN (09:30)
[2022-02-28] MEDS: ACETAMINOPHEN 325 MG TAB PO PRN ×2 (12:20→23:11)
[2022-02-28] MEDS: NIRMATRELVIR/RITONAVIR 1 EACH TABLET PO SCH ×2 (15:05→20:38)
[2022-02-28] MEDS: GABAPENTIN 300 MG CAP PO SCH (17:48)
[2022-03-01] VITALS (8 sets, daily range): BP systolic 100–140; BP diastolic 59–72
[2022-03-01] MEDS: LEVOTHYROXINE SODIUM 88 MCG TAB PO SCH (04:50)
[2022-03-01 06:08] LABS: EOSINOPHILS % 0.7 % (0.0-6.0); LYMPHOCYTES # (AUTO) 1.5 (1.0-3.2); LYMPHOCYTES % 36.8 % (18.0-39.1); MEAN CORPUSCULAR HEMOGLOBIN 25.7 pg (28-32); MEAN CORPUSCULAR HGB CONC 31.4 g/dL (31-35); MEAN CORPUSCULAR VOLUME 81.8 fL (81-99); MONOCYTES # (AUTO) 0.4 (0.2-0.8); MONOCYTES % 9.4 % (4.4-11.3); NEUTROPHILS # (AUTO) 2.2 (2.1-6.9); NEUTROPHILS % 52.9 % (38.7-80.0); PLATELET COUNT 215 x10e3/uL (140-360); RED BLOOD COUNT 4.28 x10e6/uL (3.6-5.1); RED CELL DISTRIBUTION WIDTH 13.7 % (11.7-14.4)
[2022-03-01 06:53] LABS: ALBUMIN 3.2 g/dL (3.5-5.0); ANION GAP 11.1 mmol/L (8-16); CALCIUM 8.4 mg/dL (8.4-10.2); CREATININE, SERUM 0.55 mg/dL (0.57-1.11); POTASSIUM 3.1 mmol/L (3.5-5.1)
[2022-03-01] MEDS: INSULIN REGULAR, HUMAN 100 UNIT/1 ML SQ SCH ×4 (07:30→22:26)
[2022-03-01] MEDS: GABAPENTIN 300 MG CAP PO SCH ×2 (09:00→17:00)
[2022-03-01] MEDS ORDERED: MEROPENEM 1 GM in SODIUM CHLORIDE 0.9% 100 ML IV SCH (09:00)
[2022-03-01] MEDS ORDERED: BUPIVACAINE HCL 0.5% INJ 30 ML VIAL INJ ONE (11:20)
[2022-03-01] MEDS: KCL 20MEQ/.9 SOD CHL 1,000 ML IV SCH (11:54)
[2022-03-01] MEDS ORDERED: ONDANSETRON HCL INJ 2MG/ML 2ML 2 MG/ML VIAL IV PRN (13:45)
[2022-03-01] MEDS ORDERED: HYDRALAZINE HCL 20 MG/ML VIAL ONE (14:04)
[2022-03-01] MEDS ORDERED: SODIUM CHLORIDE 0.9% 1000ML 1,000 ML IV SCH (14:15)
[2022-03-01] MEDS ORDERED: FENTANYL CITRATE/PF 100MCG/2 ML INJ ONE (14:17)
[2022-03-01] MEDS: NIRMATRELVIR/RITONAVIR 1 EACH TABLET PO SCH ×2 (14:45→22:23)
[2022-03-01] MEDS: ESCITALOPRAM OXALATE 10 MG TAB PO SCH (14:45)
[2022-03-01] MEDS: HYDROMORPHONE 1MG/1ML INJ IV PRN ×2 (16:00→18:50)
[2022-03-01] MEDS: HYDROCODONE/APAP 5MG-325MG TAB PO PRN (22:02)
[2022-03-01] MEDS: ONDANSETRON HCL INJ 2MG/ML 2ML 2 MG/ML VIAL IV PRN (22:14)
[2022-03-02] VITALS (7 sets, daily range): BP systolic 96–133; BP diastolic 60–90
[2022-03-02] MEDS: HYDROMORPHONE 1MG/1ML INJ IV PRN ×3 (00:20→15:40)
[2022-03-02] MEDS: KCL 20MEQ/.9 SOD CHL 1,000 ML IV SCH (00:50)
[2022-03-02] MEDS: LEVOTHYROXINE SODIUM 88 MCG TAB PO SCH (06:01)
[2022-03-02 06:10] LABS: BASOPHILS % 0.1 % (0.0-1.0); HEMATOCRIT 36.5 % (34.2-44.1); HEMOGLOBIN 11.5 g/dL (12.0-16.0); LYMPHOCYTES # (AUTO) 1.2 (1.0-3.2); LYMPHOCYTES % 14.6 % (18.0-39.1); MEAN CORPUSCULAR HEMOGLOBIN 25.8 pg (28-32); MEAN CORPUSCULAR HGB CONC 31.5 g/dL (31-35); MONOCYTES # (AUTO) 0.6 (0.2-0.8); NEUTROPHILS # (AUTO) 6.1 (2.1-6.9); NEUTROPHILS % 76.9 % (38.7-80.0); PLATELET COUNT 218 x10e3/uL (140-360); RED BLOOD COUNT 4.45 x10e6/uL (3.6-5.1)
[2022-03-02 06:21] LABS: ANION GAP 11.2 mmol/L (8-16); CALCIUM 8.2 mg/dL (8.4-10.2); CREATININE, SERUM 0.55 mg/dL (0.57-1.11); POTASSIUM 3.2 mmol/L (3.5-5.1)
[2022-03-02] MEDS: ESCITALOPRAM OXALATE 10 MG TAB PO SCH (09:21)
[2022-03-02] MEDS: GABAPENTIN 300 MG CAP PO SCH ×2 (09:21→16:55)
[2022-03-02] MEDS: NIRMATRELVIR/RITONAVIR 1 EACH TABLET PO SCH ×2 (09:22→22:15)
[2022-03-02] MEDS: INSULIN REGULAR, HUMAN 100 UNIT/1 ML SQ SCH ×4 (09:23→23:39)
[2022-03-02] MEDS ORDERED: POTASSIUM CHLORIDE 10MEQ EA PO ONE (09:45)
[2022-03-02] MEDS: HYDROCODONE/APAP 5MG-325MG TAB PO PRN (10:18)
[2022-03-02] MEDS ORDERED: SODIUM CHLORIDE 0.9% 100 ML ONE (12:44)
[2022-03-02] MEDS ORDERED: SODIUM CHLORIDE 0.9% 250ML 250 ML ONE (12:48)
[2022-03-02] MEDS: DEXAMETHASONE 4 MG TAB PO SCH (12:48)
[2022-03-02] MEDS ORDERED: REMDESIVIR 100MG 200 MG in SODIUM CHLORIDE 0.9% 100 ML IV ONE (13:00)
[2022-03-03] VITALS (7 sets, daily range): BP systolic 117–126; BP diastolic 61–71
[2022-03-03] MEDS: HYDROMORPHONE 1MG/1ML INJ IV PRN (00:30)
[2022-03-03] MEDS ORDERED: MAGNESIUM HYDROXIDE 30 ML UDC PO ONE (01:30)
[2022-03-03] MEDS: LEVOTHYROXINE SODIUM 88 MCG TAB PO SCH (05:49)
[2022-03-03 06:33] LABS: BASOPHILS % 0.2 % (0.0-1.0); HEMOGLOBIN 11.1 g/dL (12.0-16.0); LYMPHOCYTES # (AUTO) 0.6 (1.0-3.2); LYMPHOCYTES % 8.6 % (18.0-39.1); MEAN CORPUSCULAR HEMOGLOBIN 25.6 pg (28-32); MEAN CORPUSCULAR HGB CONC 30.8 g/dL (31-35); MEAN CORPUSCULAR VOLUME 82.9 fL (81-99); MONOCYTES # (AUTO) 0.2 (0.2-0.8); MONOCYTES % 3.2 % (4.4-11.3); NEUTROPHILS # (AUTO) 5.8 (2.1-6.9); NEUTROPHILS % 87.5 % (38.7-80.0); PLATELET COUNT 193 x10e3/uL (140-360); RED BLOOD COUNT 4.34 x10e6/uL (3.6-5.1)
[2022-03-03 06:52] LABS: MAGNESIUM 1.9 MG/DL (1.3-2.1); PHOSPHORUS 2.1 MG/DL (2.3-4.7)
[2022-03-03 07:18] LABS: ANION GAP 12.7 mmol/L (8-16); CALCIUM 9.1 mg/dL (8.4-10.2); CREATININE, SERUM 0.56 mg/dL (0.57-1.11); POTASSIUM 3.7 mmol/L (3.5-5.1)
[2022-03-03] MEDS: DEXAMETHASONE 4 MG TAB PO SCH (09:44)
[2022-03-03] MEDS: ESCITALOPRAM OXALATE 10 MG TAB PO SCH (09:45)
[2022-03-03] MEDS: GABAPENTIN 300 MG CAP PO SCH ×2 (09:45→17:09)
[2022-03-03] MEDS: INSULIN REGULAR, HUMAN 100 UNIT/1 ML SQ SCH ×4 (09:47→21:30)
[2022-03-03] MEDS: NIRMATRELVIR/RITONAVIR 1 EACH TABLET PO SCH ×2 (10:30→21:30)
[2022-03-03] MEDS: REMDESIVIR 100MG 100 MG in SODIUM CHLORIDE 0.9% 100 ML IV SCH (14:40)
[2022-03-03] MEDS: ENOXAPARIN SOD INJ 40 MG/0.4 ML SYR SC SCH (17:10)
[2022-03-04] VITALS (9 sets, daily range): BP systolic 117–156; BP diastolic 56–91
[2022-03-04] MEDS: HYDROCODONE/APAP 5MG-325MG TAB PO PRN (02:30)
[2022-03-04] MEDS: LEVOTHYROXINE SODIUM 88 MCG TAB PO SCH (06:30)
[2022-03-04] MEDS: INSULIN REGULAR, HUMAN 100 UNIT/1 ML SQ SCH ×4 (08:30→20:44)
[2022-03-04] MEDS: DEXAMETHASONE 4 MG TAB PO SCH (08:44)
[2022-03-04] MEDS: GABAPENTIN 300 MG CAP PO SCH ×2 (08:46→17:11)
[2022-03-04] MEDS: ESCITALOPRAM OXALATE 10 MG TAB PO SCH (08:46)
[2022-03-04] MEDS: NIRMATRELVIR/RITONAVIR 1 EACH TABLET PO SCH ×2 (08:47→20:42)
[2022-03-04] MEDS: REMDESIVIR 100MG 100 MG in SODIUM CHLORIDE 0.9% 100 ML IV SCH (14:00)
[2022-03-04] MEDS: ENOXAPARIN SOD INJ 40 MG/0.4 ML SYR SC SCH (17:11)
[2022-03-05] VITALS: BP 156/74
[2022-03-05 04:00] VITALS: BP 124/64
[2022-03-05 05:35] LABS: BASOPHILS % 0.1 % (0.0-1.0); HEMATOCRIT 35.5 % (34.2-44.1); HEMOGLOBIN 11.3 g/dL (12.0-16.0); LYMPHOCYTES # (AUTO) 0.8 (1.0-3.2); MEAN CORPUSCULAR HEMOGLOBIN 25.8 pg (28-32); MEAN CORPUSCULAR HGB CONC 31.8 g/dL (31-35); MEAN CORPUSCULAR VOLUME 81.1 fL (81-99); MONOCYTES # (AUTO) 0.2 (0.2-0.8); MONOCYTES % 3.3 % (4.4-11.3); NEUTROPHILS # (AUTO) 5.9 (2.1-6.9); NEUTROPHILS % 84.2 % (38.7-80.0); PLATELET COUNT 300 x10e3/uL (140-360); RED BLOOD COUNT 4.38 x10e6/uL (3.6-5.1); RED CELL DISTRIBUTION WIDTH 14.5 % (11.7-14.4)
[2022-03-05 06:07] LABS: ANION GAP 12.8 mmol/L (8-16); CALCIUM 8.6 mg/dL (8.4-10.2); CREATININE, SERUM 0.66 mg/dL (0.57-1.11); POTASSIUM 3.8 mmol/L (3.5-5.1)
[2022-03-05] MEDS: LEVOTHYROXINE SODIUM 88 MCG TAB PO SCH (06:25)
[2022-03-05] MEDS: INSULIN REGULAR, HUMAN 100 UNIT/1 ML SQ SCH (07:30)
[2022-03-05] MEDS ORDERED: PANTOPRAZOLE SOD 40 MG TABEC PO SCH (07:30)
[2022-03-05 08:30] VITALS: BP 136/71
[2022-03-05 08:35] VITALS: BP 136/71
[2022-03-05] MEDS: NIRMATRELVIR/RITONAVIR 1 EACH TABLET PO SCH ×2 (09:00→09:30)
[2022-03-05] MEDS: ESCITALOPRAM OXALATE 10 MG TAB PO SCH (09:30)
[2022-03-05] MEDS: GABAPENTIN 300 MG CAP PO SCH (09:30)
== END 2022-03-05 11:20 | disposition home or self-care (01) | DRG 417 ==
LOC: ER 13:20 → ERHOLD 18:05 → MED/SURG3 20:00
PROVIDERS: ADMIT Internal Medicine; ATTEND Internal Medicine
PROC: 8E0ZXY6 Isolation (ICD-10-PCS; 2022-02-27)
PROC: XW033E5 Introduction of Remdesivir Anti-infective into Peripheral Vein, Percutaneous Approach, New Technology Group 5 (ICD-10-PCS; 2022-03-01)
PROC: 0FT44ZZ Resection of Gallbladder, Percutaneous Endoscopic Approach (ICD-10-PCS; principal; 2022-03-01 12:43)
PROC: XW03396 Introduction of Ceftolozane/Tazobactam Anti-infective into Peripheral Vein, Percutaneous Approach, New Technology Group 6 (ICD-10-PCS; 2022-03-03)
DX: K80.12 Calculus of gallbladder with acute and chronic cholecystitis without obstruction (principal); U07.1 COVID-19; J15.9 Unspecified bacterial pneumonia; J12.82 Pneumonia due to coronavirus disease 2019; K43.6 Other and unspecified ventral hernia with obstruction, without gangrene; K91.89 Other postprocedural complications and disorders of digestive system; K56.7 Ileus, unspecified; E87.1 Hypo-osmolality and hyponatremia; K21.9 Gastro-esophageal reflux disease without esophagitis; E03.9 Hypothyroidism, unspecified; F32.A Depression, unspecified; E78.5 Hyperlipidemia, unspecified; E11.40 Type 2 diabetes mellitus with diabetic neuropathy, unspecified; Z79.4 Long term (current) use of insulin; K76.0 Fatty (change of) liver, not elsewhere classified; Z86.16 Personal history of COVID-19; K59.00 Constipation, unspecified; R35.0 Frequency of micturition; E86.0 Dehydration; E66.9 Obesity, unspecified; Z68.32 Body mass index [BMI] 32.0-32.9, adult; M19.90 Unspecified osteoarthritis, unspecified site; Z88.0 Allergy status to penicillin
CPT/HCPCS: 36415; 74176; 74177; 74181; 76705; 78227; 80048; 80053; 81001; 82948; 83690; 83735; 84100; 84484; 85025; 88304; 93005; 94799; 96372; 97139; 99284; A9537; J0248; J0360; J0694; J1170; J1650; J1817; J2270; J2405; J2543; J3010; J7030; J7050; Q9967; U0002

== ENCOUNTER 2024-10-13 10:14 | Emergency (ER) | payer MEDICARE ==
[~2024-10-13] VITALS: Ht 154.9 cm; Wt 79.4 kg
[~2024-10-13 10:14] MED LIST changes: +ALENDRONATE SOD70 MG PO; +ASPIRIN81 MG PO; +CEFUROXIME250 MG PO; +CELEXA10 MG PO; +FARXIGA10 MG PO; +FERROUS SULFAT325 MG PO; +GABAPENTIN300 MG/6 M PO; +HYDROCHLOROTHIA25 MG PO; +LEVOTHYROXINE100 MC1 PO; +LEVOTHYROXINE112 MCG PO; +LISINOPRIL10 MG PO; +MELOXICAM7.5 MG PO; +METHOCARBAMOL750 MG PO; +METOCLOPRAM5 MG/5 ML PO; +MULTI-VITAMIN1 EACH PO; +OMEGA-31000 MG PO; +PIOGLITAZONE HC45 MG PO; +TRADJENTA5 MG PO
[2024-10-13 10:30] VITALS: PULSE 79; RESP 20; TEMP 97.6
[2024-10-13] MEDS ORDERED: NAPROXEN250 MG PO (15:32)
[2024-10-13] MEDS ORDERED: ULTRAM 50MG50 MG PO (15:32)
[2024-10-13] MEDS: KETOROLAC TROMETHAMINE 30 MG/ML VIAL IM STA (15:46)
[2024-10-13] MEDS: TRAMADOL HCL 50 MG TAB PO ONE (15:46)
[2024-10-13 15:49] VITALS: BP 132/81; PULSE 80; RESP 18; TEMP 97.8; O2SAT 99
== END 2024-10-13 15:50 | disposition home or self-care (01) ==
LOC: ER 10:22
DX: M25.561 Pain in right knee (principal); M25.562 Pain in left knee; I10 Essential (primary) hypertension; E11.9 Type 2 diabetes mellitus without complications; E78.5 Hyperlipidemia, unspecified; E03.9 Hypothyroidism, unspecified; Z85.42 Personal history of malignant neoplasm of other parts of uterus
CPT/HCPCS: 73562; 99283; J1885

== ENCOUNTER 2025-05-23 10:04 | Emergency (ER) | payer MEDICARE ==
[~2025-05-23] VITALS: Ht 154.9 cm; Wt 77.6 kg
[~2025-05-23 10:04] MED LIST changes: +NAPROXEN250 MG PO; +PIOGLITAZONE HC30 MG PO; +ULTRAM 50MG50 MG PO
[2025-05-23 10:42] VITALS: RESP 17; TEMP 97.7
[2025-05-23] MEDS: ONDANSETRON HCL INJ 2MG/ML 2ML 2 MG/ML VIAL IM STA (11:41)
[2025-05-23] MEDS: BELLADONNA ALK/PHENOBARBITAL 5 ML UDC PO ONE (11:42)
[2025-05-23] MEDS: MAGNESIUM/ALUMINUM/SIMETHICONE 30 ML UDC PO ONE (11:42)
[2025-05-23] MEDS: LIDOCAINE VISC 2% SOLN 15 ML UDC PO ONE (11:42)
[2025-05-23 11:45] VITALS: PULSE 78; O2SAT 97
[2025-05-23] MEDS ORDERED: CARAFATE1 GM PO (12:12)
[2025-05-23 12:14] LABS: LEUKOCYTE ESTERASE ,URINE NEGATIVE (NEGATIVE); PROTEIN,URINE DIPSTICK TRACE (NEGATIVE); URINE UROBILINOGEN 0.2 mg/dL (0.2 - 1)
[2025-05-23] MEDS ORDERED: ONDANSETRON ODT4 MG PO (12:16)
[2025-05-23 12:25] LABS: EPITHELIAL CELLS,URINE MODERATE /LPF
== END 2025-05-23 12:45 | disposition home or self-care (01) ==
LOC: ER 11:19
DX: R10.9 Unspecified abdominal pain (principal); K29.70 Gastritis, unspecified, without bleeding; I10 Essential (primary) hypertension; E11.40 Type 2 diabetes mellitus with diabetic neuropathy, unspecified; E78.5 Hyperlipidemia, unspecified; E03.9 Hypothyroidism, unspecified; Z85.42 Personal history of malignant neoplasm of other parts of uterus
CPT/HCPCS: 81001; 87086; 99283; J2405

== ENCOUNTER 2025-08-22 10:34 | Emergency (ER) | payer MEDICARE ==
[~2025-08-22] VITALS: Ht 154.9 cm; Wt 80.7 kg
[~2025-08-22 10:34] MED LIST changes: +CARAFATE1 GM PO; +ONDANSETRON ODT4 MG PO
[2025-08-22] MEDS ORDERED: DOXYCYCLINE HY100 MG PO (10:37)
[2025-08-22 10:42] VITALS: TEMP 98.6
[2025-08-22 11:30] VITALS: PULSE 65; RESP 20; O2SAT 99
[2025-08-22] MEDS: KETOROLAC TROMETHAMINE 30 MG/ML VIAL IM STA (11:36)
[2025-08-22] MEDS: TETANUS/DIPHTHERIA TOX ADULT 0.5 ML SYR IM ONE (11:41)
== END 2025-08-22 13:46 | disposition home or self-care (01) ==
LOC: ER 10:40
DX: S80.812A Abrasion, left lower leg, initial encounter (principal); S90.412A Abrasion, left great toe, initial encounter; W18.39XA Other fall on same level, initial encounter; Y93.89 Activity, other specified; I10 Essential (primary) hypertension; E11.9 Type 2 diabetes mellitus without complications; E78.5 Hyperlipidemia, unspecified; E03.9 Hypothyroidism, unspecified; E11.40 Type 2 diabetes mellitus with diabetic neuropathy, unspecified; Z85.42 Personal history of malignant neoplasm of other parts of uterus
CPT/HCPCS: 73562 ×2; 73590; 90471; 90714; 99283; J1885